=== PATIENT | female | born 1985 ===

== ENCOUNTER 2023-06-19 20:24 | Emergency (ER) | payer BC, SELFPAY ==
[2023-06-19 20:26] VITALS: BP 135/60
[2023-06-19 20:43] LABS: % Basophils 1.1 % (0-2); % Eosinophils 3.1 % (0-6); % Immature Granulocytes 0.2 % (0-0.5); % Lymphocytes 43.8 % (20.5-51.1); % Monocytes 7.5 % (1.7-9.3); % Neutrophils 44.3 % (42.2-75.2); Absolute Basophils 0.1 10^3/uL (0-0.2); Absolute Eosinophils 0.2 10^3/uL (0-0.7); Absolute Lymphocytes 2.8 10^3/uL (1.2-3.4); Absolute Monocytes 0.5 10^3/uL (0.1-0.6); Absolute Neutrophils 2.8 10^3/uL (1.4-6.5); Hematocrit 40.3 % (37.0-47.0); Hemoglobin 14.3 g/dL (12.0-16.0); Mean Corp Hgb Conc. 35.5 g/dL (33.0-37.0); Mean Corpuscular Hgb 30.1 pg (27.0-31.0); Mean Corpuscular Volume 84.8 fL (81.0-99.0); Mean Platelet Volume 10.3 fL (7.4-10.4); Nucleated Red Blood Cells % 0 %; Platelet Count 257 10^3/uL (130-400); Red Blood Cell Count 4.75 10^6/uL (4.20-5.40); White Blood Cell Count 6.4 10^3/uL (4.8-10.8)
[2023-06-19 20:52] LABS: HCG, Serum Qualitative Screen Negative
[2023-06-19 20:55] LABS: ALT (SGPT) 14 U/L (0-35); AST (SGOT) 20 U/L (14-36); Albumin 5.3 g/dl (3.5-5.0); Alkaline Phosphatase 81 U/L (38-126); Blood Urea Nitrogen 12 mg/dl (7-17); Carbon Dioxide 26 mmol/L (22-30); Chloride 106 mmol/L (98-107); Glucose 91 mg/dl (70-99); Lipase 51 U/L (23-300); Potassium 4.3 mmol/L (3.5-5.1); Sodium 138 mmol/L (135-145); Total Bilirubin 0.6 mg/dl (0.2-1.3); eGFR > 60.00
--- NOTE | 2023-06-19 22:54 | ED.GENMED ---
History of Present Illness
General
Chief Complaint: Abdominal Pain
Source: patient
Exam Limitations: none
Time Seen by Provider: 06/19/23 22:53
Nursing documentation reviewed up to this point in time: agreed with
Travel History
Have you had any contact with someone who has COVID-19?: No
Do you have any symptoms of coronavirus? Fever > 100 degrees, chills, cough, shortness of breath, sore throat, loss of taste or smell, muscle aches, or headache?: No
History of Present Illness
History of Present Illness:
Pleasant 38-year-old female who presents with left lower quadrant abdominal pain that has been present for the last 4 days. On Friday she developed this pain and initially she thought she was constipated so she has been taking stool softeners. She
states that her loose stools ease her pain temporarily while defecating. She reports not having a full appetite. She went to urgent care who referred her to us for CAT scan. She denies previous similar symptoms. She did have a and
appendectomy in the past. Denies fever, chills, nausea or vomiting. Reports no chest pain or shortness of breath.
Vital signs are stable. Patient not hypoxic
Nursing note reviewed. I agree with nursing documentation up to this point in time.
Home Meds and allergies reviewed.
NUMBER AND COMPLEXITY OF PROBLEMS ADDRESSED AT THE ENCOUNTER
� Chronic conditions affecting care: None
� Acute Exacerbation and/or Progression of Chronic Illness: None
� Differential Diagnosis includes: Diverticulitis, colitis, less likely SBO
AMOUNT AND/OR COMPLEXITY OF DATA TO BE REVIEWED AND ANALYZED
I performed an independent evaluation of the following and my interpretation is:
EKG:
CT:
X-rays:
Ultrasound:
Laboratory Studies:
Other:
Review of other/old records: No previous records
Clinical information was obtained by an independent historian:
Prescriptions/Medications Considered but not given:
Further testing considered but not performed:
RISK OF COMPLICATIONS AND/OR MORBIDITY OR MORTALITY OF PATIENT MANAGEMENT
Social determinants of health affecting care: Good Social Support, accompanied by mom
Discussion with other providers:
Escalation of care including admission/observation vs risk of discharge considered:
CRITICAL CARE NOTE:
Total Time (exclusive of procedures):
Update:
Phy Exam
General Physical Exam
General Presentation: well appearing and no apparent distress
General Skin: warm and dry
General Habitus: normal
General Mental: alert
General Hydration: appears well hydrated
ENT Exam
ENT Exam: EOMI, pharynx normal, neck supple and normocephalic
Eye Exam
Eye Exam: PERRL, cornea clear and conjunctiva normal
Cardiovascular Exam
Cardiovascular Exam: regular rate/rhythm, no edema, no murmur and normal peripheral pulses
Pulmonary Exam
Pulmonary Exam: lungs clear, no respiratory distress, no rales, no crackles, no rhonchi, no stridor, no wheezing and no cough
Gastrointestinal Exam
Gastrointestinal Exam: normal bowel sounds, non tender, soft, no organomegaly, no pulsatile mass and non distended
Palpation: left upper quadrant: No tenderness, left lower quadrant: Minimal tenderness, right upper quadrant: No tenderness, right lower quadrant: No tenderness and generalized: No tenderness
Neurological Exam
Neurological Exam: alert, oriented x3, no motor deficits and speech normal
Musculoskeletal Exam
Musculoskeletal Exam: full ROM and no edema
Skin Exam
Skin Exam: normal color, warm/dry, no rash and no petechia
Psychiatric Exam
Psychiatric Exam: normal mood/affect
Course
Orders/Labs/Results
Orders:
Orders
06/19/23 20:29
Test Result ONCE
06/19/23 20:35
Complete Blood Count/With Diff Urgent
Comprehensive Metabolic Panel Urgent
HCG, Serum Qualitative Screen Urgent
Lipase Urgent
06/19/23 23:07
Iohexol [Omnipaque] See Protocol PO NOW STA
06/20/23 01:00
CT Abd/pel W Iv And Oral Contr Urgent
Reason For Exam: LLQ abd pain
Abnormal Lab Results
06/19/23
20:35
Albumin 5.3 H g/dl
(3.5-5.0)
06/19/23 20:35
06/19/23 20:35
Vital Signs
Initial and Last Documented VS:
Initial Vital Signs
Temp Pulse Resp BP Pulse Ox
99.2 F 64 18 135/60 99
06/19/23 20:26 06/19/23 20:26 06/19/23 20:26 06/19/23 20:26 06/19/23 20:26
Last Documented Vital Signs
Temp Pulse Resp BP Pulse Ox
99.2 F 71 16 116/72 99
06/19/23 20:26 06/19/23 23:13 06/19/23 23:13 06/20/23 00:00 06/20/23 00:45
*Critical Care Note
Total Time (30-74mins, 75-104mins- exclusive of procedures): Not Applicable
Update Note
Update Note:
CT A/P W/IV CONTRAST
IMPRESSION:
No definite CT findings to account for the reported pain/symptoms.
No colitis. Appendectomy.
No evidence of small bowel obstruction.
No free fluid or free air.
Unremarkable CT appearance of the gallbladder, biliary tract, and pancreas.
No evidence of hydroureteronephrosis or obstructing stone.
Unremarkable appearance of the pelvic viscera.
No AAA.
Case finalized at 139am ET.
Discussed possible ultrasound with patient. At this time she refuses. She does not feel that this could be in the pelvic region. She states that she does not want this test. She does understand that a missed diagnosis is possible without further
testing. Patient being discharged in improved condition. Discussed return to ER instructions with patient and mom. They both verbalized good understanding. Patient ambulated out of the ER with a brisk and steady gait.
ED Attending Note
-
Portions of this chart may have been created with voice recognition software.� Occasional wrong word or��sound alike� substitutions may have occurred due to the inherent limitations of voice recognition software.
Discharge Plan
Departure
Patient Disposition: Home (Routine Discharge)
Date of Disposition: 06/20/23
Time of Disposition: 02:19
Patient with high blood pressure during this ER visit?: No
Condition: Good
Discharge Problem:
Abdominal pain
Instructions: Abdominal Pain
Referrals:
Lisa Rosas CRNP [Family Provider] -
Activity Restrictions/Additional Instructions:
It was a pleasure meeting you and taking part in your care. We hope for your continued healing and wellness.
Please read discharge instructions in their entirety. However, they are for general education and may not describe your exact diagnosis at discharge. Information on your ER visit and medical conditions were discussed with you along with appropriate
follow up information...
If indicated, please take your medications as instructed and indicated on discharge paperwork.
Please schedule a follow up appointment as directed. Call to schedule an appointment
Please return to the emergency department with ANY change in, persisting, or worsening of symptoms. If any of your symptoms do not improve, or persist, or become more severe within 6-12 hours, please return to the emergency department for further
care.
Please return to the emergency department if you develop a headache, neck pain/stiffness, fever greater than 100.4F, chest pain, shortness of breath, persistent nausea, vomiting, slurred speech, difficulty walking, numbness/tingling, weakness, signs
of infection or any other symptoms that are worrisome to you.
If you have any questions or concerns please do not hesitate to call the Hospital at or E-mail me directly at [email or web address]
Interventions
Interventions:
*Risk Screen - Suicide Last Done: 06/19/23 20:26
*General Assessment Last Done: 06/19/23 20:26
*Neglect/Abuse Screening Last Done: 06/19/23 20:26
ED- Fall Risk Assessment Last Done: 06/20/23 02:29
*ED COVID-19 Vaccine History Last Done: 06/19/23 20:26
*Nursing Disposition Last Done: 06/20/23 02:29
DI-Vnugvb-Hllxeaktss Assessment Last Done: 06/19/23 23:28
Discharge Date and Time
Discharge Date/Time: 06/20/23 02:30
[2023-06-19 23:05] VITALS: BMI 23.8
[2023-06-19 23:12] VITALS: BP 117/71
[2023-06-19] MEDS: OMNIPAQUE 50 ML PO (23:18)
[2023-06-20] VITALS: BP 116/72
== END 2023-06-20 02:30 | disposition home or self-care (01) ==
LOC: EMR 20:24
PROVIDERS: Student in an Organized Health Care Education/Training Program; EMERGENCY PHYSICIAN Student in an Organized Health Care Education/Training Program; FAMILY PHYSICIAN Nurse Practitioner Family
DX: R10.9 Unspecified abdominal pain (principal); R19.7 Diarrhea, unspecified
CPT/HCPCS: 99284; 74177; 80053; 83690; 84703; 85025; Q9967

== ENCOUNTER 2024-10-16 16:13 | Emergency (ER) | payer BC, SELFPAY ==
[2024-10-16 16:22] VITALS: BP 129/86
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
== END 2024-10-16 17:20 | disposition left against medical advice (07) ==
LOC: EMR 16:13
PROVIDERS: EMERGENCY PHYSICIAN Emergency Medicine
DX: R55 Syncope and collapse (principal); R10.9 Unspecified abdominal pain; Z90.49 Acquired absence of other specified parts of digestive tract; Z53.29 Procedure and treatment not carried out because of patient's decision for other reasons
CPT/HCPCS: 99282